=== PATIENT | male | born 1970 | race Caucasian/White ===

== ENCOUNTER 2017-05-21 08:07 | Day surgery (SDC) | payer OTHER ==
[~2017-05-21] VITALS: Ht 182.9 cm; Wt 90.0 kg
[~2017-05-21 08:07] MED LIST: HYDROmorphone 2 MG/ML VIAL IV PRN; IV RINGERS,LACTATED 1000ML 1,000 ML IV SCH; LIDOCAINE 1% PF 2 ML VIAL. ID PRN; MORPHINE SULFATE 2 MG/ML DISP.SYRIN. IV PRN; ONDANSETRON PF 4 MG/2 ML VIAL. IV PRN; PROCHLORPERAZINE 10 MG/2 ML VIAL. IV PRN; ceFAZolin SODIUM IV Push 1 GM VIAL. IVP ONE; fentaNYL PF VIAL 100 MCG/2 ML VIAL IV PRN
[2017-05-21] MEDS ORDERED: SEVOFLURANE 61 TO 120 MINUTES. IH ONE ×2 (08:18)
[2017-05-21] MEDS ORDERED: MIDAZOLAM HCL/PF 2 MG/2 ML VIAL. ONE (08:19)
[2017-05-21] MEDS ORDERED: ROCURONIUM 50 MG/5 ML VIAL. ONE (08:19)
[2017-05-21] MEDS ORDERED: fentaNYL PF VIAL 100 MCG/2 ML VIAL ONE ×2 (08:19→10:59)
[2017-05-21] MEDS ORDERED: NEOSTIGMINE METHYLSULFATE 5 MG/5 ML SYRINGE. ONE (08:19)
[2017-05-21] MEDS ORDERED: GLYCOPYRROLATE 1 MG/5 ML VIAL. ONE (08:19)
[2017-05-21] MEDS ORDERED: LIDOCAINE 2% PF Vial for OR 5 ML VIAL. ONE (08:20)
[2017-05-21] MEDS ORDERED: ONDANSETRON PF 4 MG/2 ML VIAL. ONE (08:20)
[2017-05-21] MEDS ORDERED: PROPOFOL 20 ML IV ONE (08:20)
[2017-05-21] MEDS ORDERED: DEXAMETHASONE SOD PHOS 20 MG/5 ML VIAL. ONE (08:20)
[2017-05-21] MEDS ORDERED: SCOPOLAMINE 1.5MG PATCH. TD ONE (08:58)
[2017-05-21] MEDS ORDERED: ROPIVacaine 0.5% PF 30 ML VIAL. ONE (08:58)
[2017-05-21] MEDS ORDERED: MULT1TAB52 PO (09:03)
[2017-05-21] MEDS ORDERED: BUPIVACAINE MPF 0.5% 30 ML VIAL. ONE (09:18)
[2017-05-21] MEDS ORDERED: EPINEPHrine VIAL 30 MG/30 ML VIAL ONE (09:18)
[2017-05-21] MEDS ORDERED: KETOROLAC 30 MG/ML INJ FOR OR. INJ ONE (11:17)
[2017-05-21] MEDS ORDERED: oxyCODONE/APAP 7.5/325 1 TAB TABLET PO ONE ×2 (13:30)
--- NOTE | 2017-05-21 13:34 | DISCH ---
DISCHARGE INSTRUCTIONS Condition on Discharge Condition on Discharge: Stable Activity After Discharge Activity Instructions for Disc: Other, see below Other activity instructions: No active lifting of elbow away from body Diet after Discharge Diet after Discharge: Regular Wound Incision Care Wound/Incision Care: Do not change dressing Other wound/incision instructi: remove dressing 2 days may then shower Community/Resources/Services Services at Discharge: PT EVALUATE & TREAT (PROM left shoulder only x5 weeks) Contacting the [facility] after DC Call your doctor for: Concerns you may have Follow-Up Follow up with: Edin 10 days LALA ADHIKARI MD May 21, 2017 13:34
[2017-05-21] MEDS ORDERED: OXYC-327 PO (13:41)
--- NOTE | 2017-05-21 14:37 | PDOC4 ---
Operative Note Operative Note Date of surgery: 05/21/2017 Preoperative diagnosis: Rotator cuff tear plus suspected biceps labral injury Postoperative diagnosis: 90+ percent full-thickness distal supraspinatus tear and type II SLAP tear with further labral degeneration Operative procedure: Left shoulder arthroscopy arthroscopic rotator cuff repair biceps tenodesis and subacromial decompression as well as extensive labral debridement Surgeon: Edin Anesthesia: Gen. endotracheal plus scalene block Estimated blood loss: 25 mL Complications: None Operative indications: Patient is had left shoulder pain and weakness MRI was concerning for a near full-thickness distal supraspinatus tear and biceps labral involvement. He had responded poorly to physical therapy and nonoperative treatment and is severely limited in his activities of daily living at present. I had gone over with him the risks benefits postoperative course of operative treatment possibility of nonhealing continued pain nerve or blood vessel damage medical or other anesthetic complications and the typical recommended treatment for his situation of a rotator cuff repair a dressing of the biceps labral injury potentially with a biceps tenodesis or other indicated procedures based on the pathology identified. All his questions were answered consent was obtained and he agrees to proceed with operative evaluation and treatment. Operative text: Patient was identified procedure verified patient placed in the supine position on the operating table. After adequate amounts of general endotracheal anesthesia and pre-existing interscalene block were obtained he was placed left side decubitus all bony prominences were well-padded and the shoulder was examined under anesthesia found a full range of motion no instability. The left shoulder was then prepped and draped in standard sterile fashion placed in the arthroscopic arm stanley with a total of 15 pounds of traction a standard posterior portal was established and an anterior portal established using spinal needle localization. He was noted to have a type II SLAP tear with significant labral fraying superiorly as well as anteriorly and posteriorly all of which were debrided back to more stable tissue. He was noted to have normal capsule ligament structure and bare area of the humerus as well as insertion of the subscapularis. Examination of the bursal side revealed a over 90% full-thickness tear of the supraspinatus insertion and therefore given plans for rotator cuff repair elected to proceed with a biceps tenodesis and tagged the biceps tendon. I then proceeded with subacromial decompression as he had a significant anterior acromial spur converting the type II to a type I acromion using cutting block technique and distal clavicle joint was not compromised. Bursa was cleared for visualization rotator cuff footprint was debrided and 2 2.9 double loaded juggernaut anchors were placed along the medial row sutures were placed in a mattress fashion secured with sliding locking knots backed up by alternating post-half hitches and lateral row fixation with a single [facility] lateral row anchor with excellent fixation of the rotator cuff footprint and a watertight repair under all degrees of internal/external rotation. Biceps was visualized through an anterior portal and fixated with a [employer] tenodesis screw size 9 after drilling a size 8 hole to about 20 mm depth and visualizing the tendon at the base excellent screw fixation was noted and biceps contour maintained. Arthroscopic portals were closed with buried Vicryl sutures skin closure with Monocryl sterile dressings were applied he was placed in an immobilizer extirpated transferred to postop holding in stable condition having tolerated procedure well LALA ADHIKARI MD May 21, 2017 14:37
[2017-05-21 15:20] VITALS: BP 109/70
== END 2017-05-21 15:41 | disposition home or self-care (01) ==
LOC: SURG 08:07
PROVIDERS: ATTEND Orthopaedic Surgery
DX: S46.012A Strain of muscle(s) and tendon(s) of the rotator cuff of left shoulder, initial encounter (principal); S43.432A Superior glenoid labrum lesion of left shoulder, initial encounter; X58.XXXA Exposure to other specified factors, initial encounter; Y93.89 Activity, other specified; Y92.89 Other specified places as the place of occurrence of the external cause; Y99.8 Other external cause status; E78.00 Pure hypercholesterolemia, unspecified; Z86.39 Personal history of other endocrine, nutritional and metabolic disease; Z87.39 Personal history of other diseases of the musculoskeletal system and connective tissue; Z72.89 Other problems related to lifestyle; Z88.3 Allergy status to other anti-infective agents
CPT/HCPCS: 29823; 29826; 29827; 29828; 97162; C1713; J0171; J0690; J1100; J1885; J2250; J2405; J2704; J2710; J2795; J3010; J3490; J7120; J2001